=== PATIENT | male | born 1995 | race Caucasian/White ===

== ENCOUNTER 2019-01-11 06:59 | Emergency (ER) | payer SELFPAY ==
[~2019-01-11] VITALS: Ht 177.8 cm; Wt 88.2 kg
[~2019-01-11 06:59] MED LIST: IBUP800T19 PO
[2019-01-11 07:00] VITALS: BP 104/65
[2019-01-11] MEDS ORDERED: TETRACAINE 0.5% OPHTH SOLUTION 4ML BOTTLE. ONE (07:12)
[2019-01-11] MEDS ORDERED: FLUORESCEIN 1MG EYE STRIP. ONE (07:12)
[2019-01-11] MEDS ORDERED: TETRACAINE 0.5% OPHTH SOLUTION 4ML BOTTLE. OD ONE (07:15)
--- NOTE | 2019-01-11 07:31 | PHYS DOC ---
Text Text Visual acuity 20/20, both eyes. Right eye inspected, no foreign body. No conjunctivitis. No fluorescein uptake on staining. Suspect symptoms may be allergy related. 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 General Chief Complaint: EYE PROBLEMS Stated Complaint: EYE PROBLEM Time Seen by MD: 07:12 Source: patient Exam Limitations: no limitations History of Present Illness Initial Comments Patient is a 23 old male who presents with right eye tearing for the past 3 days. Patient denies foreign body sensation, or injury. States he may have got dust in his eye while at work and has been rubbing his eye since that time. Patient initially flushed side while at work is taking Benadryl without relief symptoms. No conjunctivitis, drainage, eyelid swelling. No change in vision. Patient does not wear corrective eyewear. Timing/Duration: gradual Severity: moderate Location: eye (R) Prearrival Treatment: over the counter meds, flushing eyes Modifying Factors: improves with activity Associated Symptoms: denies symptoms Allergies: Coded Allergies: No Known Drug Allergies (Unverified , 08/31/14) Past Medical History Medical History: no pertinent history Surgical History: no surgical history Family History Significant Family History: no pertinent family hx Eyes: see HPI, blurred vision Physical Exam Eyes: right eye PERRL, right eye EOMI, right eye other (tearing) Nose: normal inspection Mouth/Throat: normal mouth inspection Neck: non-tender KELTON PALACIOS DO Jan 11, 2019 07:31
== END 2019-01-11 07:37 | disposition home or self-care (01) ==
LOC: ER 06:59
DX: H57.89 Other specified disorders of eye and adnexa (principal)
CPT/HCPCS: 99283